=== PATIENT | female | born 1975 | race Two or more races ===

== ENCOUNTER 2021-05-13 02:28 | Emergency (ER) | payer OTHER ==
[~2021-05-13] VITALS: Ht 162.6 cm; Wt 103.4 kg
[2021-05-13 05:23] VITALS: BP 152/88
[2021-05-13] MEDS ORDERED: ASCO500C49 PO (05:24)
[2021-05-13] MEDS ORDERED: PRED20TA2 PO (05:24)
[2021-05-13] MEDS ORDERED: ACET-1304 PO (05:24)
[2021-05-13] MEDS ORDERED: AZITTAB PO (05:24)
[2021-05-13] MEDS ORDERED: ZINC220C10 PO (05:24)
[2021-05-13] MEDS ORDERED: PSEU1SYP6 PO (05:24)
== END 2021-05-13 05:41 | disposition home or self-care (01) ==
LOC: ER 02:36
DX: U07.1 COVID-19 (principal); J02.9 Acute pharyngitis, unspecified
CPT/HCPCS: 36415; 87426; 99283; C9803; U0003